=== PATIENT | male | born 1940 | race Caucasian/White ===

== ENCOUNTER 2021-06-02 18:33 | Inpatient (IN) ==
[2021-06-02] MEDS ORDERED: HYDROmorphone 2 MG/1 ML VIAL IV PRN (21:02)
[2021-06-02] MEDS ORDERED: ONDANSETRON 4 MG/2 ML VIAL IV PRN (21:02)
[2021-06-02] MEDS ORDERED: ACETAMINOPHEN 325 MG TABLET PO PRN (21:02)
[2021-06-02 21:18] LABS: Basophils # 0.1 10*3/uL (0.0-0.2); Basophils % 0.5 % (0.0-0.8); Eosinophils # 0.1 10*3/uL (0.0-0.87); Eosinophils % 0.5 % (0.00-10.9); Hematocrit 42.5 VOL% (42.0-52.0); Hemoglobin 14.1 GM/DL (14.0-18.0); Immature Granulocytes % 0.7 %; Immature Granulocytes Absolute 0.11 #; Lymphocytes # 0.9 10*3/uL (1.4-4.0); Lymphocytes % 5.9 % (21.2-54.2); Mean Corpuscular HGB Conc 33.2 GM/DL (32-36); Mean Corpuscular Volume 90.6 FL (87-102); Monocytes % 7.3 % (1.7-12.7); Neutrophils % 85.1 % (38.7-73.9); Platelet Count 232 T/CUMM (130-400); Red Blood Count 4.69 MC/CUMM (3.8-5.5); Red Cell Distribution Width 12.9 % (9.3-17.3); White Blood Count 15.3 T/CUMM (4-12)
[2021-06-02] MEDS ORDERED: DEXTROSE 50% 25 GM/50 ML VIAL IV PRN (21:27)
[2021-06-02] MEDS ORDERED: GLUCAGON 1 MG VIAL IM PRN (21:27)
[2021-06-02 21:35] LABS: PT Patient Result 10.8 SECS (10.5-12.0); Partial Thromboplastin Time 23.2 SECS (23.8-32.1)
[2021-06-02 21:36] LABS: Alanine Aminotransferase 30 U/L (16-61); Albumin 3.5 G/DL (3.4-5.0); Alkaline Phosphatase 94 U/L (45-117); Aspartate Amino Transferase 27 U/L (0-37); Bilirubin,Total < 0.39 MG/DL (0.20-1.00); Blood Urea Nitrogen 21 MG/DL (7-18); Calcium 9.2 MG/DL (8.5-10.1); Carbon Dioxide 27 MMOL/L (21-32); Estimated Glom Filtration Rate 67 ML/MIN; Glucose 174 MG/DL (74-106); Osmolality,Calculated 287.3 MOS/KG (273-304); Potassium 3.8 MMOL/L (3.5-5.1); Sodium 141 MMOL/L (136-145); Total Protein 6.7 G/DL (6.4-8.2)
[2021-06-03] MEDS ORDERED: PROMETHAZINE INJ 25 MG in SODIUM CHLORIDE 0.9% 50 ML IV PRN (06:28)
[2021-06-03] MEDS ORDERED: diphenhydrAMINE 50 MG/1 ML VIAL IV PRN (06:28)
[2021-06-03] MEDS ORDERED: ONDANSETRON 4 MG/2 ML VIAL IV PRN (06:28)
[2021-06-03] MEDS ORDERED: MEPERIDINE 25 MG/1 ML VIAL IV PRN (06:28)
[2021-06-03] MEDS ORDERED: HYDROmorphone 2 MG/1 ML VIAL IV PRN (06:28)
[2021-06-03] MEDS ORDERED: fentaNYL 100 MCG/2 ML VIAL ONE ×2 (06:55→08:32)
[2021-06-03] MEDS ORDERED: SEVOFLURANE 1 UNIT/15 MINUTE INH ONE ×6 (06:55→09:58)
[2021-06-03] MEDS ORDERED: LIDOCAINE 2% 5 ML VIAL ONE (06:55)
[2021-06-03] MEDS ORDERED: ETOMIDATE 40 MG/20 ML VIAL IV ONE (06:55)
[2021-06-03] MEDS ORDERED: DEXAMETHASONE 4 MG/1 ML VIAL ONE (06:55)
[2021-06-03] MEDS ORDERED: propofoL 200 MG/20 ML VIAL IV ONE (06:55)
[2021-06-03] MEDS ORDERED: ROCURONIUM 50 MG/5 ML VIAL IV ONE (06:55)
[2021-06-03] MEDS ORDERED: ONDANSETRON 4 MG/2 ML VIAL ONE (06:55)
[2021-06-03] MEDS ORDERED: ePHEDrine 50 MG/ML VIAL ONE (08:17)
[2021-06-03] MEDS ORDERED: ceFAZolin 1,000 MG VIAL ONE (08:18)
[2021-06-03] MEDS ORDERED: ACETAMINOPHEN INJ 1,000 MG/100 ML VIAL IV ONE (08:30)
[2021-06-03] MEDS ORDERED: GLYCOPYRROLATE 0.4 MG/2 ML VIAL ONE (08:47)
[2021-06-03] MEDS ORDERED: NEOSTIGMINE 10 MG/10 ML VIAL ONE (08:47)
[2021-06-03] MEDS ORDERED: INFLUENZA VIRUS VACCINE 0.5 ML SYRINGE IM ONE (09:00)
[2021-06-03] MEDS ORDERED: LACTATED RINGERS 1,000 ML IV ONE ×2 (09:04→09:32)
[2021-06-03] MEDS ORDERED: PHENYLEPHRINE 1 MG/10 ML SYRINGE IV ONE (09:42)
[2021-06-03] MEDS ORDERED: GLUCAGON 1 MG VIAL IM PRN (10:42)
[2021-06-03] MEDS ORDERED: DEXTROSE 50% 25 GM/50 ML VIAL IV PRN (10:42)
[2021-06-03] MEDS: INSULIN REGULAR 100 UNIT/ML SUBCUT SCH ×4 (11:31→22:01)
[2021-06-03] MEDS: DOCUSATE SODIUM 100 MG CAPSULE PO SCH ×2 (12:36→22:01)
[2021-06-03] MEDS: PANTOPRAZOLE 40 MG TABLET PO SCH (12:36)
[2021-06-03] MEDS: oxyCODONE/ACETAMINOPHEN 5-325 MG TABLET PO PRN ×2 (16:00→23:24)
[2021-06-04 05:41] LABS: Basophils % 0.2 % (0.0-0.8); Hematocrit 40.5 VOL% (42.0-52.0); Hemoglobin 13.3 GM/DL (14.0-18.0); Immature Granulocytes % 0.8 %; Immature Granulocytes Absolute 0.18 #; Lymphocytes # 1.1 10*3/uL (1.4-4.0); Mean Corpuscular HGB Conc 32.8 GM/DL (32-36); Mean Corpuscular Volume 91.6 FL (87-102); Mean Platelet Volume 10.7 FL (9.6-12.0); Monocytes % 8.5 % (1.7-12.7); Neutrophils % 85.5 % (38.7-73.9); Platelet Count 249 T/CUMM (130-400); Red Blood Count 4.42 MC/CUMM (3.8-5.5); Red Cell Distribution Width 12.9 % (9.3-17.3); White Blood Count 21.2 T/CUMM (4-12)
[2021-06-04 06:02] LABS: Albumin 3.5 G/DL (3.4-5.0); Bilirubin,Total 0.9 MG/DL (0.20-1.00); Calcium 9.1 MG/DL (8.5-10.1); Osmolality,Calculated 278.7 MOS/KG (273-304); Potassium 3.9 MMOL/L (3.5-5.1); Total Protein 6.9 G/DL (6.4-8.2)
[2021-06-04 06:08] LABS: Lymphocytes 5 % (20-55); Segmented Neutrophils 88 % (50-85); Total Cells Counted 100
[2021-06-04 06:09] LABS: Microcytosis Slight; Ovalocytes Slight; Platelet Estimate Normal
[2021-06-04] MEDS: amLODIPine 5 MG TABLET PO SCH (09:05)
[2021-06-04] MEDS: PANTOPRAZOLE 40 MG TABLET PO SCH (09:05)
[2021-06-04] MEDS: ASPIRIN EC 81 MG TABLET PO SCH (09:06)
[2021-06-04] MEDS: NEBIVOLOL 5 MG TABLET PO SCH (09:06)
[2021-06-04] MEDS: DOCUSATE SODIUM 100 MG CAPSULE PO SCH ×2 (09:06→20:51)
[2021-06-04] MEDS: OLMESARTAN 20 MG TABLET PO SCH (09:08)
[2021-06-04] MEDS: INSULIN REGULAR 100 UNIT/ML SUBCUT SCH ×4 (09:09→20:51)
[2021-06-04] MEDS: oxyCODONE/ACETAMINOPHEN 5-325 MG TABLET PO PRN ×2 (13:02→20:51)
[2021-06-04] MEDS: ROSUVASTATIN 10 MG TABLET PO SCH (20:51)
[2021-06-05] MEDS: INSULIN REGULAR 100 UNIT/ML SUBCUT SCH ×4 (07:09→21:17)
[2021-06-05] MEDS: OLMESARTAN 20 MG TABLET PO SCH (09:40)
[2021-06-05] MEDS: DOCUSATE SODIUM 100 MG CAPSULE PO SCH ×2 (09:40→21:17)
[2021-06-05] MEDS: ASPIRIN EC 81 MG TABLET PO SCH (09:40)
[2021-06-05] MEDS: amLODIPine 5 MG TABLET PO SCH (09:40)
[2021-06-05] MEDS: NEBIVOLOL 5 MG TABLET PO SCH (09:40)
[2021-06-05] MEDS: PANTOPRAZOLE 40 MG TABLET PO SCH (09:40)
[2021-06-05] MEDS: ROSUVASTATIN 10 MG TABLET PO SCH (21:17)
[2021-06-05] MEDS: oxyCODONE/ACETAMINOPHEN 5-325 MG TABLET PO PRN (21:18)
[2021-06-06] MEDS: oxyCODONE/ACETAMINOPHEN 5-325 MG TABLET PO PRN (03:45)
[2021-06-06] MEDS: INSULIN REGULAR 100 UNIT/ML SUBCUT SCH ×2 (07:16→11:37)
[2021-06-06] MEDS: DOCUSATE SODIUM 100 MG CAPSULE PO SCH (08:19)
[2021-06-06] MEDS: OLMESARTAN 20 MG TABLET PO SCH (08:19)
[2021-06-06] MEDS: PANTOPRAZOLE 40 MG TABLET PO SCH (08:19)
[2021-06-06] MEDS: amLODIPine 5 MG TABLET PO SCH (08:20)
[2021-06-06] MEDS: ASPIRIN EC 81 MG TABLET PO SCH (08:20)
[2021-06-06] MEDS: NEBIVOLOL 5 MG TABLET PO SCH (08:20)
[2021-06-06 11:28] VITALS: BP 137/71
== END 2021-06-06 15:12 | DRG 511 ==
LOC: N.EDINP 18:33 → N.ED 18:33 → N.3E 21:23
PROVIDERS: ADMIT Family Medicine; ATTEND Family Medicine